=== PATIENT | male | born 1985 | race Caucasian/White ===

== ENCOUNTER 2025-05-28 11:01 | Outpatient (AMB) | payer OTHER, SELFPAY ==
--- NOTE | 2025-05-28 10:54 | MHC.PC.OV ---
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 Accompanied by: Self / Same As Patient Allergies No Known Allergies Allergy (Verified 05/28/25 10:56) Medication List - Last Reconciled 05/28/25 by Robin Trevino MD No Known Home Meds Tobacco use date assessed: 05/28/25 Dental Screening Dental Screen Date: 05/28/25 Did you have a dental visit in the last 12 months?: Yes Did you have a dental problem in the last 6 months where you did not have access to dental care?: No Was dental information given to patient?: No HPI HPI Comments History of Present Illness Details History of Present Illness The patient is a 40-year-old male presenting to [facility] primary care and for evaluation of new-onset headaches. Headache: The patient reports new-onset headaches over the last three months, which primarily occur upon waking in the morning. The headaches are described as being located on the right frontal side, with a sensation of wrapping around the front of his head. He rates the typical pain as a 5-6 out of 10, but recalls one severe episode that felt like a hot drill in his head, which he would rate a 10/10, causing him to fall. Associated symptoms include severe brain fog; he denies nausea, vomiting, dizziness, or double vision. The patient notes that the headaches consistently resolve after the first mile of his morning run. The onset of these headaches was approximately around the same time he was hit in the head with a tree branch at work, though he did not lose consciousness or have immediate pain. He has a history of migraines but states these headaches feel different. He also reports an odd cramping in a tendon in his arm, between the biceps, which has now started in a tendon in the back of his leg. For this issue, he has been evaluated at an urgent care, an orthopedic urgent care, and two different ERs ([place] and [place]). A CT scan and X-rays were performed within the last three months, which he was told were normal. Attempts by an orthopedic doctor and his chiropractor to get an MRI have been denied by his insurance. He has also seen a urologist to check his hormones and has been seeing a chiropractor who suspects an issue with his C5 vertebrae and noted absent reflexes. 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 His last outbreak was about four weeks ago. He typically receives Valtrex from an urgent care for episodic treatment when he feels an outbreak starting. He inquired about daily suppressive therapy but expressed concern about potential side effects, specifically kidney damage, as his father has kidney disease. Gastroenteritis and colitis: The patient recently recovered from food poisoning after mart E. coli and C. diff, which caused diarrhea for two weeks that progressed to bloody stools, leading to an ER visit. He has completed a 10-day course of antibiotics and reports his stomach is now fine. Surgical History: No prior surgical history was discussed. Medications: - Muscle relaxer: Took one dose previously, but discontinued due to side effects. - Valtrex: Takes for HSV-2 outbreaks. 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 - Physical Activity: Reports being a very physical person, runs 5-7 miles, and goes to the gym. - Diet: Reports he eats healthy. - Tobacco Use: Smoked from age 13 to 23, quit approximately 17 years ago. - Alcohol Use: Drinks socially. - Sleep: Reports decent sleep and occasional snoring. Denies waking up gasping for air or feeling tired during the day. - Living Situation: Lives alone and has his children on a week on, week off basis. Family History: - Father has kidney disease. Diagnostic Results: - CT Scan of the head: Performed at [facility] within the last three months, reported as normal by his chiropractor who reviewed the scan. - X-ray: Performed at [facility] within the last three months, results reported as good. - Blood work: Performed at an urgent care and [place] ER with unspecified results. - Hormones: Checked by urologist with unspecified results. Past Medical History - Migraines: History of migraines which he feels he has outgrown. - Head Trauma: Hit in the head with a branch approximately 3 months ago without loss of consciousness. - Infectious Disease: Recent E. coli and C. diff infection, resolved with antibiotics. - Herpes Simplex Virus 2 Infection: Diagnosed with HSV-2, with recent increase in outbreak frequency. Health Maintenance - Patient is establishing care with a primary care physician for the first time in years. - Baseline labs including hemoglobin A1c, lipids, thyroid function, B12, vitamin D, HIV, hepatitis B, and hepatitis C are being ordered. [facility] Medical History (Updated 05/28/25 @ 11:12 by Rboin Trevino MD) Snoring Morning headache Severe headache Family History (Updated 05/28/25 @ 10:59 by Yayo Carmona MA) Father Kidney disease Mother No problems noted. Social History Housing: House Patient Tobacco Use Status: Never used Tobacco service: No Current occupational status: employed Cognitive needs: No Hearing needs: No Vision needs: No Review of Systems Narrative Review of Systems - Neurological: Reports morning headaches for the past 3 months, locating to the right frontal area. Reports one episode of severe, drilling head pain (05/11). Reports associated brain fog and an odd cramping sensation in his arm and leg. History of migraines. Denies nausea, vomiting, dizziness, and double vision. - Eyes: Denies eye involvement with headaches. - Respiratory: Reports occasional snoring. Denies waking up gasping for air. Reports seasonal allergies in the springtime. Denies nasal congestion. - Gastrointestinal: Reports recent history of E. coli and C. diff infection with bloody diarrhea, now resolved. Denies current stomach issues. - Constitutional: Denies feeling tired during the day. 10-point ROS reviewed and negative except as noted in HPI Physical exam (Primary Care) Vital Signs: Last Vital Signs Temp 98.1 F 05/28/25 10:55 Pulse 69 05/28/25 10:55 Resp 16 05/28/25 10:55 BP 131/73 05/28/25 10:55 Pulse Ox 97 05/28/25 10:55 Oxygen Delivery Method Room Air 05/28/25 10:55 BMI result Body Mass Index 28.3 Tobacco/Smoking Status: Tobacco use Status Tobacco use date assessed 05/28/25 05/28/25 10:59 Patient Tobacco Use Status Never used Tobacco 05/28/25 10:59 Narrative Physical Exam General: Well-appearing, in no acute distress. Vital signs: Within normal limits. HEENT: Normocephalic, atraumatic. PERRLA, EOMI. Conjunctiva clear, sclera anicteric. Oropharynx clear, mucous membranes moist. TMs intact bilaterally. Frontal right-sided headache, wrapping around the front of the head. No nasal congestion noted. Neck: Supple, no lymphadenopathy, no thyromegaly, no JVD or carotid bruits. Patient reports a cramping sensation in the neck and arm. Cardiovascular: RRR, normal S1/S2, no murmurs, rubs, or gallops. Peripheral pulses 2+ and symmetric. No edema. Respiratory: Lungs clear to auscultation bilaterally, no wheezes, rales, or rhonchi. Normal effort. Abdomen: Soft, non-tender, non-distended. Normoactive bowel sounds. No hepatosplenomegaly, no masses. MSK: Full range of motion, no joint swelling or deformity. Normal gait. Reports cramping sensation in the arm and leg. Skin: Warm, dry, intact. No rashes, lesions, or pallor. Neuro: Alert and oriented x3. Cranial nerves II-XII intact. Strength 5/5 throughout. Sensation intact. Reflexes 2+ symmetric. Normal coordination and gait. Reports severe headaches, described as a hot drill sensation, with a history of migraines. Psych: Appropriate mood and affect. Normal judgment and insight. Reports stress headaches and a history of migraines. No current stress noted. Coding Level of Care Code New Pt Level 4 (12624) Diagnoses Severe headache R51.9 Morning headache R51.9 Snoring R06.83 History of migraine Z86.69 Herpes B00.9 Assessment & Plan Assessment & Plan (1) Severe headache: Code(s): R51.9 - Headache, unspecified Category: Medical (2) Morning headache: Code(s): R51.9 - Headache, unspecified Category: Medical (3) Snoring: Code(s): R06.83 - Snoring Category: Medical (4) History of migraine: Code(s): Z86.69 - Personal history of other diseases of the nervous system and sense organs (5) Herpes: Code(s): B00.9 - Herpesviral infection, unspecified Plan Consent Patient was informed and verbally consented to the use of an ambient scribe for clinic note documentation during this visit. Plan 1. Headache - Will place a referral to Neurology for further evaluation. - A referral will be placed for a home sleep study to investigate for sleep apnea as a potential cause of morning headaches. - A prescription for Ibuprofen 800 mg will be sent for as-needed use for severe headaches. - Will order baseline bloodwork including HbA1c, lipid panel, thyroid studies, vitamin B12, vitamin D, HIV, and hepatitis panel. - Will request medical records from prior evaluations at the ERs, explosive ordnance specialist, chiropractor, and urologist. - Follow up in 2 weeks to review results. 2. Herpes Simplex Virus 2 Infection - Discussed daily suppressive antiviral therapy (Acyclovir 400 mg twice daily), which can reduce outbreak frequency by 70-80%. - Patient declined suppressive therapy at this time due to concern for potential side effects, including headache. - Will send a prescription for Valtrex (Valacyclovir) 500 mg for the patient to have on hand for episodic treatment at the onset of symptoms. - Advised that suppressive therapy can be reconsidered after the etiology of his headaches is determined and treated. Discussion Notes I have discussed with the patient the plan to investigate his new-onset headaches. I explained that we will be placing a referral to neurology and for a home sleep study, as the morning nature of the headaches could be related to a sleep disorder like sleep apnea. I informed him that we will be obtaining baseline lab work and requesting records from his previous evaluations. We discussed his HSV-2 outbreaks and reviewed the options for treatment, including daily suppressive therapy with acyclovir versus episodic treatment with Valtrex. I noted the potential risks of long-term antiviral use, such as kidney damage, and the potential side effects of suppressive therapy, including headache and nausea. The patient has opted to continue with episodic treatment for now, and I will be providing him with a prescription for Valtrex. I also prescribed Ibuprofen 800 mg for severe headaches and counseled him on using it sparingly to avoid kidney and stomach issues. The patient will follow up in two weeks to review results. Patient Instructions - Go to the lab to have blood drawn for the tests ordered today. - You will be contacted to schedule an appointment with a neurologist and to set up a home sleep study. - Sign the consent form at the [facility] so we can request your medical records from other doctors and hospitals. - For severe headaches, you may take one Ibuprofen 800 mg tablet. If the pain continues, you can take another one in 6 to 8 hours. Do not take this medication too often as it can cause kidney and stomach problems. - A prescription for Valtrex will be sent to your pharmacy. Take this medication as directed when you feel a herpes outbreak starting. - Schedule a follow-up appointment in two weeks to go over your test results. Medical Decision Making The patient is a 40-year-old male establishing care, presenting with a three-month history of new-onset daily morning headaches. The differential diagnosis for his headaches is broad, but concerning features include the new onset in middle age, a possible post-traumatic etiology, and the severity of his initial headache episode. While CT and X-rays have reportedly been negative, these do not fully rule out significant pathology. The patient's report of morning headaches that resolve with physical activity, in conjunction with occasional snoring, raises suspicion for sleep apnea, making a home sleep study a necessary and low-risk diagnostic step. Given the atypical nature of the headaches, the associated neurological symptom of limb cramping, and the chiropractor's finding of absent reflexes, a full neurological evaluation is warranted to rule out a primary neurological or cervical spine disorder; therefore, a referral to neurology is crucial. A specialist referral may also aid in getting a previously denied MRI approved. Regarding his HSV-2, the patient has an increased frequency of outbreaks. While daily suppressive therapy is a valid option, his concern about headache as a potential side effect is reasonable given his chief complaint. Therefore, providing a prescription for episodic treatment with Valtrex is the most appropriate management strategy at this time, with a plan to revisit suppressive therapy once his headaches are better understood and managed. Baseline labs are indicated for health maintenance in a new patient. Total time spent caring for the patient today was 30 minutes. This includes time spent before the visit reviewing the chart, time spent documenting, and time spent reviewing laboratory results, diagnostic imaging, medications, performing a medically necessary evaluation, counseling on diagnoses, care coordinatio Orders: Orders Hemoglobin A1c Today Z13.9 - Encounter for screening, unspecified HIV Ab/Ag Today Z13.9 - Encounter for screening, unspecified TSH reflex Free T4 Today Z13.9 - Encounter for screening, unspecified Chlamydia Species Ab Panel Today Z13.9 - Encounter for screening, unspecified RT home sleep study Today R06.83 - Snoring, R51.9 - Headache, unspecified, Z13.9 - Encounter for screening, unspecified Complete Blood Count Auto Diff Today Z13.9 - Encounter for screening, unspecified Comprehensive Met. Panel Today Z13.9 - Encounter for screening, unspecified Hepatitis B Surface Antibody Today Z13.9 - Encounter for screening, unspecified Hepatitis B Surface Antigen Today Z13.9 - Encounter for screening, unspecified Hepatitis C Antibody Today Z13.9 - Encounter for screening, unspecified Lipid Panel Today Z13.9 - Encounter for screening, unspecified Magnesium Today Z13.9 - Encounter for screening, unspecified UA CC w/rflx Micro + Cult Today Z13.9 - Encounter for screening, unspecified Vitamin B12 and Folate Today Z13.9 - Encounter for screening, unspecified Vitamin D 1,25 dihydroxy Today Z13.9 - Encounter for screening, unspecified CT NG by PCR Urine Today Z13.9 - Encounter for screening, unspecified Syphilis Screen Today Z13.9 - Encounter for screening, unspecified Referrals Neurology Referral R51.9 - Headache, unspecified, Z13.9 - Encounter for screening, unspecified Medications: New ibuprofen 800 mg PO Q8H 30 tabs 0RF valacyclovir 500 mg PO DAILY 30 tabs 0RF
[2025-05-28 10:55] VITALS: BP 131/73; PULSE 69; RESP 16; TEMP 36.7; O2SAT 97; BMI 28.3
== END 2025-05-28 11:32 | disposition home or self-care (01) ==
PROVIDERS: PCP Student in an Organized Health Care Education/Training Program; Visit Provider Student in an Organized Health Care Education/Training Program
DX: R51.9 Headache, unspecified (principal); R06.83 Snoring; Z86.69 Personal history of other diseases of the nervous system and sense organs; B00.9 Herpesviral infection, unspecified

== ENCOUNTER 2025-05-28 11:01 | Outpatient (REF) | payer OTHER, SELFPAY ==
[2025-05-28 17:57] LABS: MANUAL DIFF FLAG NO
[2025-05-28 18:10] LABS: Hematocrit 46.6 % (42.0-52.0); Hemoglobin 15.6 g/dl (14.0-18.0); Imm Gran Abs Auto 0.04 X10*3/uL (0.00-0.03); Imm Gran Pct Auto 0.7 % (0.0-0.4); Lymphocytes Absolute Auto 1.9 X10*3/uL (1.2-4.9); Mean Corpuscular HGB Conc 33.5 g/dl (31.0-36.0); Mean Corpuscular Hemoglobin 30.5 pg (27.0-33.0); Mean Corpuscular Volume 91.0 fL (80.0-98.0); NRBC Abs Auto 0.000 X10*3/uL (0.0-0.012); NRBC Pct Auto 0.0 /100WBC (0.0-0.2); Platelet Count 250 X10*3/uL (160-400); Red Blood Count 5.12 X10*6/uL (4.60-5.80); White Blood Count 5.9 X10*3/uL (4.8-10.8)
[2025-05-28 18:32] LABS: Alanine Aminotransferase 62 U/L (0-40); Albumin Level 4.8 g/dL (3.5-5.0); Alkaline Phosphatase 62 U/L (39-117); Anion Gap 12 (12-20); Aspartate Amino Transferase 49 U/L (5-37); Blood Urea Nitrogen 15 mg/dL (9-16); Calcium 9.5 mg/dL (8.4-10.2); Carbon Dioxide 28 mmol/L (22-29); Chloride 103 mmol/L (96-108); Cholesterol 159 mg/dL (<200); Estimated Glomerular Filt Rate > 60; HDL Cholesterol 41 mg/dL (>40); Magnesium 2.2 mg/dL (1.6-2.6); Potassium 4.4 mmol/L (3.3-5.1); Sodium 139 mmol/L (135-145); Total Protein 7.3 g/dL (6.5-8.0); Triglycerides 98 mg/dL (<150)
[2025-05-28 18:56] LABS: Folate 11.2 ng/mL (> or = 4.0); Vitamin B12 422 pg/mL (200-900)
[2025-05-29 03:32] LABS: Syphilis Screen Nonreactive (Nonreactive)
[2025-05-29 03:52] LABS: HBS Num1 339.78 mIU/mL (0-7.99); HBsAGNum1 0.51 S/CO (0.00-0.99); HIV Num 1 0.07 S/CO (0.00-0.99); Hepatitis B Surface Antigen Negative (Negative); ~HepC Num1 0.12 S/CO (0.00-0.79); ~Hepatitis B Surface Antibody REACTIVE (Nonreactive); ~Hepatitis C Antibody Nonreactive (Nonreactive)
[2025-05-29 05:23] LABS: Hemoglobin A1C 132.4743 umol/L
[2025-05-31 21:18] LABS: Chlamydia Trachomatis IgA <1:16 titer (<1:16)
[2025-06-01 22:53] LABS: VITAMIN D (1,25 OH) D3 41 pg/mL; Vit D (1,25-Dihydroxy) Total 41 pg/mL (18-72); Vitamin D (1,25 OH) D2 <8 pg/mL
== END 2025-05-28 11:02 | disposition home or self-care (01) ==
LOC: HO.HKASLDS 11:01
PROVIDERS: PCP Student in an Organized Health Care Education/Training Program; Visit Provider Student in an Organized Health Care Education/Training Program
DX: Z13.9 Encounter for screening, unspecified (principal); R51.9 Headache, unspecified; R06.83 Snoring; B00.9 Herpesviral infection, unspecified; Z86.69 Personal history of other diseases of the nervous system and sense organs
CPT/HCPCS: 36415; 80053; 80061; 82607; 82652; 82746; 83036; 83735; 84443; 85025; 86631; 86632; 86706; 86780; 86803; 87340; 87389; 99202

== ENCOUNTER 2025-06-13 13:04 | Outpatient (REF) | payer OTHER, SELFPAY | END 2025-06-13 13:05 | disposition home or self-care (01) | LOC: HO.HKASLDS 13:04 | PROVIDERS: PCP Student in an Organized Health Care Education/Training Program; Visit Provider Student in an Organized Health Care Education/Training Program | DX: R74.8 Abnormal levels of other serum enzymes (principal); M54.2 Cervicalgia; R19.7 Diarrhea, unspecified; R51.9 Headache, unspecified; Z79.899 Other long term (current) drug therapy | CPT/HCPCS: 99212 ==

== ENCOUNTER 2025-06-13 13:04 | Outpatient (AMB) | payer OTHER, SELFPAY ==
--- NOTE | 2025-06-13 13:13 | A.OFFPC_ITS ---
Vital Signs 06/13/25 13:14 Height 6 ft 1.23 in Weight 215 lb BMI 28.2 BP 148/68 H Blood Pressure Location Lt brachial Position Sitting Pulse 70 Pulse Source Pulse Oximeter Temp 98.2 F Temp Source Oral Pulse Oximetry (%) 98 Oxygen Delivery Method Room Air Intake Visit Reasons: Ep - E/D Follow Up Sheet Turner Required: No Accompanied by: Self / Same As Patient Allergies No Known Allergies Allergy (Verified 06/13/25 13:17) Medication List - Last Reconciled 06/13/25 by Robin Trevino MD ibuprofen 800 mg PO Q8H valacyclovir 500 mg PO DAILY Tobacco use date assessed: 06/13/25 Dental Screening Dental Screen Date: 06/13/25 Did you have a dental visit in the last 12 months?: Yes Did you have a dental problem in the last 6 months where you did not have access to dental care?: No Was dental information given to patient?: No HPI HPI Comments History of Present Illness Details History of Present Illness The patient is a 40-year-old male presenting for follow-up on headaches and lab results, and with new complaints of recurrent diarrhea and stomach pain with suspicion for a C. difficile infection. 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 diff symptoms, which he believes is back. He was initially diagnosed at an emergency room with both C. diff and E. coli after he developed symptoms following a course of antibiotics for a suspected sinus infection and attending a food truck festival. His initial symptoms included severe bloody and black, mucoid/tarry stools for two weeks. He completed a 10-day course of an antibiotic, and the diarrhea subsided about two days into the treatment. However, the diarrhea returned one to two days after finishing the antibiotic course and has been getting worse, accompanied by stomach pains that started last Wednesday. He describes the diarrhea as constant, occurring every 20 minutes if he is eating, which has led him to only eat dinner. Headache and Cervicalgia: The patient reports that his headaches are letting up, though he had one today. He previously had a CT scan of his head at an ER, which his chiropractor reviewed and stated was normal. He also experiences nerve pain, which his chiropractor believes is related to his cervical spine, specifically at the C5 level. An MRI of his neck has been ordered four times by his orthopedic doctor and chiropractor but has been denied by his insurance. His orthopedist also performed an x-ray. Elevated liver enzymes: Recent lab results showed mildly elevated liver enzymes, with one value at 49 (cutoff 37) and another at 62 (cutoff 40). All other blood work, including CBC, metabolic panel, lipids, HbA1c, vitamin levels, thyroid function, and an infectious panel for hepatitis B, hepatitis C, and HIV, was normal. The patient reports taking pre-workout supplements and protein powders. He has a remote history of steroid use during a divorce but has not used them recently. Surgical History: - No prior surgical history was discusse d. Medications: - Unknown antibiotic for a suspected sin us infection, course completed. - Unknown antibiotic (possibly starting with 'M') for 10 days for C. diff infection, course completed. Social History: - Substance Use: Reports a past history of steroid use, but not recently. - Nutrition/Supplements: Takes pre-worko ut supplements and protein powders. - Due to frequent diarrhea after eating, he restricts his intake to only dinner. Family History: - No family history was discussed. Diagnostic Results: - Labs (current): - White blood cell count, red blood cell count, hemoglobin, and hematocrit are normal. - Platelets, sodium, and potassium are n ormal. - Kidney function is normal. - Hemoglobin A1c and random glucose are normal. - Liver enzymes were mildly elevated: on e at 49 (cutoff 37) and another at 62 (cutoff 40). - Cholesterol, vitamin D, vitamin B12, f olate, and thyroid levels are normal. - Hepatitis B, hepatitis C, HIV, chlamyd ia, and syphilis are negative. - Prior Imaging/Tests: - Stool sample tested at the ER was posi tive for C. diff and E. coli. - CT scan of the head was performed at a ER and was reportedly normal. - An x-ray was performed by his orthoped ic doctor. Past Medical History - Clostridioides difficile infection, re cently treated. - Escherichia coli infection, foodborne. - Hemorrhoids. - History of steroid use (remote). Health Maintenance - Recent comprehensive lab testing perfo rmed and reviewed, including CBC, CMP, HbA1c, lipids, and infectious disease screening (hepatitis B/C, HIV, syphilis). - Discussion about avoiding unnecessary antibiotic use. [facility] Medical History (Updated 06/13/25 @ 20:50 by Robin Trevino MD) Elevated liver enzymes Cervicalgia Acute diarrhea Snoring Morning headache Severe headache Family History Father Kidney disease Mother No problems noted. Social History Housing: House Patient Tobacco Use Status: Never used Tobacco service: No Current occupational status: employed Cognitive needs: No Hearing needs: No Vision needs: No Questionnaire PHQ-9 Over the last 2 weeks, how often have you been bothered by any of the following problems? 1. Little interest or pleasure in doing things: not at all 2. Feeling down, depressed, or hopeless: not at all 3. Trouble falling or staying asleep, or sleeping too much: not at all 4. Feeling tired or having little energy: not at all 5. Poor appetite or overeating: not at all 6. Feeling bad about yourself - or that you are a failure or have let yourself or your family down: not at all 7. Trouble concentrating on things, such as reading the newspaper or watching television: not at all 8. Moving or speaking so slowly that other people could have noticed. Or the opposite - being so fidgety or restless that you have been moving around a lot more than usual: not at all 9. Thoughts that you would be better off or of hurting yourself in some way: not at all Total score: 0 Depression Screening Interpretation: Negative Depression Screening Done: Yes Source: Developed by Drs. Bernard Manning, Mini Andino, Samir Moreland and colleagues, with an educational maxx from [employer]. Thrive Questionnaire Date Thrive assessed: 06/13/25 I am a: Patient What is your living situation today?: I have a steady place to live Within the past 12 months, did the food you bought not last and you didn't have the money to get more?: I choose not to answer this question Within the past 12 months, did you worry whether your food would run out before you got money to buy more?: I choose not to answer this question Do you have trouble paying for medicines?: I choose not to answer this question Do you have trouble getting transportation to medical appointments?: I choose not to answer this question Do you have trouble paying your heating and electricity bill?: I choose not to answer this question Do you have trouble taking care of your child, family member or friend?: I choose not to answer this question Are you currently unemployed and looking for a job?: I choose not to answer this question Are you interested in more education?: I choose not to answer this question Please select the resources that you would like help with: None Currently or been in a relationship where the following occur: I choose not to answer THRIVE Score: 0 AUDIT C Alcohol Use Questionnaire (AUDIT-C) 1. How often do you have a drink containing alcohol?: 2-4 times a month 2. How many drinks containing alcohol do you have on a typical day when you are drinking?: 1 or 2 3. How often do you have six or more drinks on one occasion?: Never Total Score: 2 JOELLE-7 AMB Questionnaire JOELLE-7 Date JOELLE - 7 assessed: 06/13/25 Feeling nervous, anxious, or on edge: 0 = Not at all Not being able to stop or control worryin = Not at all Worrying too much about different things: 0 = Not at all Trouble relaxin = Not at all Being so restless that it is hard to sit still: 0 = Not at all Becoming easily annoyed or irritable: 0 = Not at all Feeling afraid as if something awful might happen: 0 = Not at all Total JOELLE-7 score (0-4 normal; 5-9 mild; 10-14 moderate; 15-21 severe): 0 Source: Developed by Drs. Bernard Manning, Mini Andino, Samir Moreland and colleagues, with an educational maxx from [employer]. Review of Systems Narrative Review of Systems - Neurological: Reports headaches that are improving but still present. - Reports nerve pain. - Gastrointestinal: Reports constant diarrhea which has recurred after stopping antibiotics. - Reports stomach pains that began last Wednesday. - Reports a history of severely bloody and black, tarry/mucus-like stools. 10-point ROS reviewed and negative except as noted in HPI Physical exam (Primary Care) Vital Signs: Last Vital Signs Temp 98.2 F 06/13/25 13:14 Pulse 70 06/13/25 13:14 BP 148/68 H 06/13/25 13:14 Pulse Ox 98 06/13/25 13:14 Oxygen Delivery Method Room Air 06/13/25 13:14 BMI result Body Mass Index 28.2 Tobacco/Smoking Status: Tobacco use Status Tobacco use date assessed 06/13/25 06/13/25 13:19 Patient Tobacco Use Status Never used Tobacco 06/13/25 13:16 PHQ-9: PHQ-9 Score PHQ-9: Total score 0 06/13/25 13:19 Depression Screening Interpretation: Negative Thrive Assessment: Date of Thrive Assessment Date Thrive assessed 06/13/25 06/13/25 13:19 Currently or been in a relationship where the following occur: I choose not to answer Narrative Physical Exam General: Well-appearing, in no acute distress. Vital signs: Within normal limits. HEENT: Normocephalic, atraumatic. PERRLA, EOMI. Conjunctiva clear, sclera anicteric. Oropharynx clear, mucous membranes moist. TMs intact bilaterally. Neck: Supple, no lymphadenopathy, no thyromegaly, no JVD or carotid bruits. Cardiovascular: RRR, normal S1/S2, no murmurs, rubs, or gallops. Peripheral pulses 2+ and symmetric. No edema. Respiratory: Lungs clear to auscultation bilaterally, no wheezes, rales, or rhonchi. Normal effort. Abdomen: Soft, non-tender, non-distended. Normoactive bowel sounds. No hepatosplenomegaly, no masses. MSK: Full range of motion, no joint swelling or deformity. Normal gait. Skin: Warm, dry, intact. No rashes, lesions, or pallor. Neuro: Alert and oriented x3. Cranial nerves II-XII intact. Strength 5/5 throughout. Sensation intact. Reflexes 2+ symmetric. Normal coordination and gait. Psych: Appropriate mood and affect. Normal judgment and insight. Coding Level of Care Code Est Pt Level 3 (76297) Diagnoses Acute diarrhea R19.7 Morning headache R51.9 Cervicalgia M54.2 Elevated liver enzymes R74.8 Assessment & Plan Assessment & Plan (1) Acute diarrhea: Code(s): R19.7 - Diarrhea, unspecified Category: Medical (2) Morning headache: Code(s): R51.9 - Headache, unspecified Category: Medical (3) Cervicalgia: Code(s): M54.2 - Cervicalgia Category: Medical (4) Elevated liver enzymes: Code(s): R74.8 - Abnormal levels of other serum enzymes Category: Medical Plan Consent No procedures requiring specific consent were discussed during the visit. Patient was informed and verbally consented to the use of an ambient scribe for clinic note documentation during this visit. Plan 1. Recurrent Clostridioides Difficile Infection - A stool study will be ordered to test for C. diff. - If the stool study is positive, appropriate treatment will be initiated. - The patient was instructed on where to bring the stool sample. 2. Headache And Cervicalgia - The patient is advised to wait for the upcoming neurology follow-up. - The patient will provide the office with information to request prior imaging, including a CT of the head from the ER and neck x-rays from his orthopedist. - Will consider ordering a neck MRI after reviewing prior studies and the neurologist's assessment. 3. Elevated Liver Transaminases - Given the mild elevation and otherwise normal workup, the plan is to monitor the liver enzymes. - Repeat labs will be ordered in three months to re-check liver function. - If the enzymes remain elevated on repeat testing, an ultrasound and further labs will be considered. - A follow-up visit is scheduled for three months. Discussion Notes I reviewed the recent lab results with the patient and noted that while most results were excellent, there was a mild elevation in his liver enzymes. I explained that we would monitor this by repeating the labs in three months, and if they remained high, we would consider an ultrasound. We discussed his recurrent diarrhea and stomach pain, and my clinical suspicion for recurrent C. difficile infection. I have ordered a stool study to confirm the diagnosis, with a plan to initiate appropriate treatment if it returns positive. Regarding his headaches and nerve pain, I recommended we obtain his prior imaging records from the ER and his orthopedist to have a complete picture before considering further steps like another MRI request. I emphasized the importance of his upcoming neurology appointment. Patient Instructions - Please provide a stool sample for testing. - You can bring the sample to the lab where you had your blood drawn. - Please give our staff (Iris) the information for the location where you had your head CT scan and neck x-rays done so we can request the reports. - We will have you repeat your blood work in three months to recheck your liver function. - Please schedule a follow-up appointment in about three months, but you can come in sooner if you need to. Medical Decision Making The patient is a 40-year-old male with a chief complaint of recurrent diarrhea and abdominal pain, raising high suspicion for recurrent C. difficile infection. His history is significant for a recent antibiotic course for suspected sinusitis, followed by confirmed E. coli and C. diff infections diagnosed in the ER. The temporal association of symptom recurrence shortly after completing a 10-day antibiotic course for C. diff strongly supports this differential. Therefore, a stool study for C. diff toxin is the next appropriate diagnostic step before committing to further antibiotic treatment. The patient's secondary complaints include improving headaches and persistent nerve pain, which his chiropractor attributes to a C5 issue. Multiple attempts to obtain a cervical MRI by other providers have been denied. My plan is to consolidate care by first reviewing all prior imaging (head CT, neck X-ray) and awaiting his neurology consult before considering a new MRI order, which may improve the chances of approval. Review of recent labs revealed mild transaminitis in the setting of otherwise normal comprehensive metabolic, lipid, and infectious panels. Given his use of workout supplements and lack of other risk factors, the current approach is conservative monitoring with repeat liver function tests in three months. If elevations persist, a liver ultrasound will be the next step to investigate for underlying pathology. Total time spent caring for the patient today was 20 minutes. This includes time spent before the visit reviewing the chart, time spent documenting, and time spent reviewing laboratory results, diagnostic imaging, medications, performing a medically necessary evaluation, counseling on diagnoses, care coordination. Orders: Orders CDiff Gene PCR Today R19.7 - Diarrhea, unspecified Calprotectin, Fecal Today R19.7 - Diarrhea, unspecified Leukocytes Stool Qualitative Today R19.7 - Diarrhea, unspecified
[2025-06-13 13:14] VITALS: BP 148/68; PULSE 70; TEMP 36.8; O2SAT 98; BMI 28.2
== END 2025-06-13 13:48 | disposition home or self-care (01) ==
LOC: HO.HMCFMS 13:05
PROVIDERS: PCP Student in an Organized Health Care Education/Training Program; Visit Provider Student in an Organized Health Care Education/Training Program
DX: R19.7 Diarrhea, unspecified (principal); R51.9 Headache, unspecified; M54.2 Cervicalgia; R74.8 Abnormal levels of other serum enzymes

== ENCOUNTER 2025-06-14 09:33 | Outpatient (REF) | payer OTHER, SELFPAY ==
[2025-06-14 14:54] LABS: Leukocytes Stool Qualitative NEGATIVE (NEGATIVE)
[2025-06-14 16:22] LABS: CDiff Gene PCR POSITIVE (Negative)
[2025-06-14 16:23] LABS: CDiff Toxin Positive (Negative)
[2025-06-14 16:24] LABS: CDIFF Internal ctrl Dots and bkg OK (V)
[2025-06-21 20:23] LABS: Calprotectin, Fecal 32 mcg/g
== END 2025-06-14 09:34 | disposition home or self-care (01) ==
LOC: HO.HKASLDS 09:33
PROVIDERS: PCP Student in an Organized Health Care Education/Training Program; Visit Provider Student in an Organized Health Care Education/Training Program
DX: R19.7 Diarrhea, unspecified (principal)
CPT/HCPCS: 83993; 87324; 87493; 89055

== ENCOUNTER 2025-07-18 14:23 | Outpatient (AMB) | payer OTHER, SELFPAY ==
--- NOTE | 2025-07-18 13:31 | A.OFFPC_ITS ---
Intake Visit Reasons: Follow up Allergies No Known Allergies Allergy (Verified 06/13/25 13:17) Tobacco use date assessed: 06/13/25 Dental Screening Dental Screen Date: 06/13/25 COUNTS INCLUDE 234 BEDS AT THE [facility] Medical History (Updated 06/15/25 @ 15:07 by Robin Trevino MD) C. difficile diarrhea Elevated liver enzymes Cervicalgia Acute diarrhea Snoring Morning headache Severe headache Family History Father Kidney disease Mother No problems noted. Social History Housing: House Patient Tobacco Use Status: Never used Tobacco service: No Current occupational status: employed Cognitive needs: No Hearing needs: No Vision needs: No Questionnaire Thrive Questionnaire Date Thrive assessed: 06/13/25 JOELLE-7 AMB Questionnaire JOELLE-7 Date JOELLE - 7 assessed: 06/13/25 Source: Developed by Drs. Bernard Manning, Mini Andino, Samir Moreland and colleagues, with an educational maxx from [employer]. Physical exam (Primary Care) Tobacco/Smoking Status: Tobacco use Status Tobacco use date assessed 06/13/25 06/13/25 13:19 Patient Tobacco Use Status Never used Tobacco 06/13/25 13:16 Thrive Assessment: Date of Thrive Assessment Date Thrive assessed 06/13/25 06/13/25 13:19 Coding
--- NOTE | 2025-07-18 14:24 | A.OFFPC_ITS ---
Vital Signs 07/18/25 14:30 Height 6 ft 1.23 in BP 120/58 L Blood Pressure Location Lt brachial Position Sitting Pulse 90 Pulse Source Pulse Oximeter Temp 98.0 F Temp Source Oral Pulse Oximetry (%) 97 Oxygen Delivery Method Room Air Intake Visit Reasons: Follow up Intake Note: f/u C Dif. Completed vancomycin and is still having sx Accompanied by: Self / Same As Patient Allergies No Known Allergies Allergy (Verified 07/18/25 14:24) Medication List - Last Reconciled 07/19/25 by Robin Trevino MD ibuprofen 800 mg PO Q8H valacyclovir 500 mg PO DAILY Tobacco use date assessed: 07/18/25 Dental Screening Dental Screen Date: 07/18/25 Did you have a dental visit in the last 12 months?: Yes HPI HPI Comments History of Present Illness Details History of Present Illness The patient is a 40 year old male presenting for follow-up of a Clostridioides difficile infection and evaluation of persistent brain fog. 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 He was seen in the emergency department on May 14, 2025, for diarrhea and colitis, with a positive C. diff result from April and recent antibiotic use making infectious colitis highly probable. He was previously treated with Vancomycin. A recent prescription for fidaxomicin was denied by his insurance due to cost. He describes his stool as mucousy and tarry, but denies any blood. His history also includes a prior E. coli infection. Brain Fog: The patient has been experiencing brain fog and memory problems for several months. He attributes this to significant life stressors over the past five years, including a divorce and custody cortes. Due to his work in [employer], he was tested for tick-borne diseases, but the full tick panel was negative. He also had daily headaches for four months, which have since subsided to approximately once every three weeks. Recent lab work, including B12, thyroid, and metabolic panels, were all normal. He has a neurology appointment scheduled for the end of September. History of Attention-Deficit/Hyperactivity Disorder (ADHD): The patient has a history of ADHD, dyslexia, and anxiety since childhood. He describes being treated with a multitude of medications as a child, which he felt was like being a guinea pig, leading to significant side effects including weight gain to 250 pounds and sexual dysfunction. Due to this negative experience, he is hesitant to take psychiatric medications. He previously self- medicated with Adderall to maintain focus during his custody cortes but disliked the side effects, such as anorexia and insomnia. He currently attends therapy every other week. 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 - Family Status: The patient is and has a daughter. - Education: He did not complete high [employer] past the 10th grade. - Substance Use: He reports past, non-pr escribed use of Adderall. - Functional Status: He attends therapy every other week. Family History: - The patient's daughter has ADHD. Diagnostic Results: - Labs: - C. diff test: Positive. - Full tick panel: Negative. - B12 level: Good. - Thyroid function: Good. - Hemoglobin and hematocrit: Normal. - Electrolytes, minerals, and vitamins: No deficiencies noted. Past Medical History - Clostridioides difficile infection: Pr eviously treated with Vancomycin. - E. coli infection - Attention-Deficit/Hyperactivity Disord er (ADHD): Diagnosed in childhood. - Dyslexia: Diagnosed in childhood. - Anxiety: Diagnosed in childhood. - Seasonal allergies Health Maintenance - The patient sees a therapist every oth er week. - He is attending [facility]ropract[facility] twice a week for six weeks for an unspecified condition. [facility] Medical History (Updated 07/19/25 @ 06:54 by Robin Trevino MD) ADHD Brain fog C. difficile diarrhea Elevated liver enzymes Cervicalgia Acute diarrhea Snoring Morning headache Severe headache Family History Father Kidney disease Mother No problems noted. Social History Housing: House Patient Tobacco Use Status: Never used Tobacco e-Cigarette/Vaping Use: Never Used service: No Current occupational status: employed Cognitive needs: No Hearing needs: No Vision needs: No Questionnaire PHQ-9 Over the last 2 weeks, how often have you been bothered by any of the following problems? 1. Little interest or pleasure in doing things: not at all 2. Feeling down, depressed, or hopeless: not at all 3. Trouble falling or staying asleep, or sleeping too much: not at all 4. Feeling tired or having little energy: not at all 5. Poor appetite or overeating: not at all 6. Feeling bad about yourself - or that you are a failure or have let yourself or your family down: not at all 7. Trouble concentrating on things, such as reading the newspaper or watching television: not at all 8. Moving or speaking so slowly that other people could have noticed. Or the opposite - being so fidgety or restless that you have been moving around a lot more than usual: not at all 9. Thoughts that you would be better off or of hurting yourself in some way: not at all Total score: 0 Depression Screening Interpretation: Negative Depression Screening Done: Yes Source: Developed by Drs. Bernard Manning, Mini Andino, Samir Moreland and colleagues, with an educational maxx from [employer]. Thrive Questionnaire Date Thrive assessed: 07/18/25 I am a: Patient What is your living situation today?: I have a steady place to live Within the past 12 months, did the food you bought not last and you didn't have the money to get more?: I choose not to answer this question Within the past 12 months, did you worry whether your food would run out before you got money to buy more?: I choose not to answer this question Do you have trouble paying for medicines?: I choose not to answer this question Do you have trouble getting transportation to medical appointments?: I choose not to answer this question Do you have trouble paying your heating and electricity bill?: I choose not to answer this question Do you have trouble taking care of your child, family member or friend?: I choose not to answer this question Are you currently unemployed and looking for a job?: I choose not to answer this question Are you interested in more education?: I choose not to answer this question Please select the resources that you would like help with: None Currently or been in a relationship where the following occur: I choose not to answer THRIVE Score: 0 AUDIT C Alcohol Use Questionnaire (AUDIT-C) 1. How often do you have a drink containing alcohol?: 2-4 times a month 2. How many drinks containing alcohol do you have on a typical day when you are drinking?: 1 or 2 3. How often do you have six or more drinks on one occasion?: Never Total Score: 2 JOELLE-7 AMB Questionnaire JOELLE-7 Date JOELLE - 7 assessed: 07/18/25 Feeling nervous, anxious, or on edge: 0 = Not at all Not being able to stop or control worryin = Not at all Worrying too much about different things: 0 = Not at all Trouble relaxin = Not at all Being so restless that it is hard to sit still: 0 = Not at all Becoming easily annoyed or irritable: 0 = Not at all Feeling afraid as if something awful might happen: 0 = Not at all Total JOELLE-7 score (0-4 normal; 5-9 mild; 10-14 moderate; 15-21 severe): 0 Source: Developed by Drs. Bernard Manning, Mini Andino, Samir Moreland and colleagues, with an educational maxx from [employer]. Review of Systems Narrative Review of Systems - Constitutional: Denies fevers and chills. - Neurological: Reports brain fog and memory impairment. - Gastrointestinal: Reports mucousy and tarry stools. - Denies blood in diarrhea. - Allergic/Immunologic: Reports itchy eyes in the springtime, which he treats with Claritin. 10-point ROS reviewed and negative except as noted in HPI Physical exam (Primary Care) Vital Signs: Last Vital Signs Temp 98.0 F 07/18/25 14:30 Pulse 90 07/18/25 14:30 BP 120/58 L 07/18/25 14:30 Pulse Ox 97 07/18/25 14:30 Oxygen Delivery Method Room Air 07/18/25 14:30 Tobacco/Smoking Status: Tobacco use Status Tobacco use date assessed 07/18/25 07/18/25 14:25 Patient Tobacco Use Status Never used Tobacco 07/18/25 14:25 e-Cigarette/Vaping Use Never Used 07/18/25 14:25 PHQ-9: PHQ-9 Score PHQ-9: Total score 0 07/18/25 14:54 Depression Screening Interpretation: Negative Thrive Assessment: Date of Thrive Assessment Date Thrive assessed 07/18/25 07/18/25 14:25 Currently or been in a relationship where the following occur: I choose not to answer Narrative Physical Exam General: Well-appearing, in no acute distress. Vital signs: Within normal limits. HEENT: Normocephalic, atraumatic. PERRLA, EOMI. Conjunctiva clear, sclera anicteric. Oropharynx clear, mucous membranes moist. TMs intact bilaterally. Neck: Supple, no lymphadenopathy, no thyromegaly, no JVD or carotid bruits. Cardiovascular: RRR, normal S1/S2, no murmurs, rubs, or gallops. Peripheral pulses 2+ and symmetric. No edema. Respiratory: Lungs clear to auscultation bilaterally, no wheezes, rales, or rhonchi. Normal effort. Abdomen: Soft, non-tender, non-distended. Normoactive bowel sounds. No hepatosplenomegaly, no masses. MSK: Full range of motion, no joint swelling or deformity. Normal gait. Skin: Warm, dry, intact. No rashes, lesions, or pallor. Neuro: Alert and oriented x3. Cranial nerves II-XII intact. Strength 5/5 throughout. Sensation intact. Reflexes 2+ symmetric. Normal coordination and gait. Psych: Appropriate mood and affect. Normal judgment and insight. Reports brain fog for months, but labs are normal. No current psychiatric medications. Regular therapy sessions ongoing. Office Procedures Flu Questionnaire Does the patient have a severe egg allergy?: No Does the patient have severe life threatening allergies?: No Does the patient have a fever or illness today?: No Has the patient ever had Guillain-[place] Syndrome?: No Has the patient ever had any past reaction to a flu shot?: No Immunizations Fluarix [id number] (PF) 45 mcg (15 mcg x 3)/0.5 mL IM syringe Performing Provider: Robin Trevino MD Performing Location: [facility] [place] [facility] Documented (not given) by: Kiara Swain CMA on 07/18/25 14:54 Reason Not Given: Patient Refused Coding Level of Care Code Est Pt Level 3 (01447) Add On Problem Visit Only Diagnoses C. difficile diarrhea A04.72 Acute diarrhea R19.7 Brain fog R41.89 ADHD F90.9 Assessment & Plan Assessment & Plan (1) C. difficile diarrhea: Code(s): A04.72 - Enterocolitis due to Clostridium difficile, not specified as recurrent Category: Medical (2) Acute diarrhea: Code(s): R19.7 - Diarrhea, unspecified Category: Medical (3) Brain fog: Code(s): R41.89 - Other symptoms and signs involving cognitive functions and awareness Category: Medical (4) ADHD: Code(s): F90.9 - Attention-deficit hyperactivity disorder, unspecified type Category: Medical Plan Consent Patient was informed and verbally consented to the use of an ambient scribe for clinic note documentation during this visit. Plan 1. Clostridioides Difficile Infection - A referral has been placed to Gastroenterology for management, as the insurance company has denied coverage for fidaxomicin, the current standard of care. - Holding off on prescribing antibiotics at this time to avoid inducing further antibiotic-associated diarrhea and to allow the specialist to direct care. - The patient was advised that the [facility]'s gastroenterology group will call him for an appointment, and he should call them if he does not hear anything within one to two weeks. 2. Brain Fog / History Of Adhd - The patient's lab results, including B12, thyroid function, and metabolic panels, are normal. - The patient has an existing appointment with Neurology scheduled for the end of September. - Provided contact information for [email or web address], an online psychiatric service that provides ADHD testing and management. - Discussed the patient's hesitancy toward medication due to negative past experiences, encouraging him to consult with the service to see what they recommend. Discussion Notes I discussed the patient's persistent C. difficile infection. I explained that his insurance denied the recommended medication, fidaxomicin, which is the current standard of care, while the previous treatment, vancomycin, is no longer preferred. Consequently, I am referring him to a ambulatory care coordinator who can better manage the condition and navigate the insurance issues. We will not start any antibiotics at this time to avoid further complications. I also addressed his complaint of brain fog. We reviewed his normal lab results, and I acknowledged his upcoming neurology appointment. Given his significant history of ADHD and his expressed reservations about medication due to negative experiences in his youth, I provided him with information for [email or web address], a group that offers specialized virtual evaluations for ADHD. I encouraged him to explore this option at his discretion. The patient was advised to follow up as needed. Patient Instructions - A referral has been sent for you to see a specialist for your gut infection (ambulatory care coordinator). - Please do not take any new antibiotics for this until you see the specialist. - If you do not get a call for your gastroenterology appointment within 1-2 weeks, please call the hospital's scheduling department. - You were given the contact information for [facility]. - You can call them to discuss your brain fog and history of ADHD if you choose. - Keep your scheduled appointment with the neurologist at the end of September. - Please return to the clinic as needed. - Seek immediate care for any fever, chills, or blood in your stool. Medical Decision Making The patient is a 40-year-old male presenting with two main concerns: persistent Clostridioides difficile infection and chronic brain fog. Regarding the C. diff, his testing remains positive. The standard of care, fidaxomicin, was denied by his insurance, and repeating a course of vancomycin, with which he was prev iously treated, is not ideal for recurrent infection. Therefore, the most appropriate step is a referral to a ambulatory care coordinator to manage this complex case and assist with medication approval. Antibiotic therapy will be deferred pending specialist consultation. For his brain fog, the initial workup for common organic causes, including vitamin deficiencies, TSH, and anemia, is unremarkable. The differential remains broad but is heavily influenced by his significant psychosocial stressors and his history of ADHD. While a neurology follow-up is already in place, his symptoms and history warrant a dedicated neurobehavioral evaluation. I provided a resource for this, respecting his expressed hesitation regarding pharmacotherapy due to significant negative experiences as a child. Total Time Statement 20 min Total time spent caring for the patient today includes pre-visit chart review, documentation, review of laboratory and diagnostic imaging results, medication reconciliation, medically necessary evaluation, counseling on diagnoses, care coordination, ordering appropriate tests and medications, review of tests performed by other providers, reporting test results to the patient, and co mmunication with other healthcare providers. Orders: Orders Influenza [id number] Immunization 07/18/25 Z23 - Encounter for immunization Referrals Gastroenterology Referral A04.72 - Enterocolitis due to Clostridium difficile, not specified as recurrent
[2025-07-18 14:30] VITALS: BP 120/58; PULSE 90; TEMP 36.7; O2SAT 97
== END 2025-07-18 14:53 | disposition home or self-care (01) ==
LOC: HO.HMCFMS 14:23
PROVIDERS: PCP Student in an Organized Health Care Education/Training Program; Visit Provider Student in an Organized Health Care Education/Training Program
DX: A04.72 Enterocolitis due to Clostridium difficile, not specified as recurrent (principal); R19.7 Diarrhea, unspecified; R41.89 Other symptoms and signs involving cognitive functions and awareness; F90.9 Attention-deficit hyperactivity disorder, unspecified type

== ENCOUNTER → 2025-07-18 14:23 | Outpatient (BNVA) | payer OTHER, SELFPAY | PROVIDERS: PCP Student in an Organized Health Care Education/Training Program; Visit Provider Student in an Organized Health Care Education/Training Program | DX: A04.72 Enterocolitis due to Clostridium difficile, not specified as recurrent (principal); R41.89 Other symptoms and signs involving cognitive functions and awareness; F90.9 Attention-deficit hyperactivity disorder, unspecified type; Z13.31 Encounter for screening for depression; Z13.39 Encounter for screening examination for other mental health and behavioral disorders | CPT/HCPCS: 90471; 96127; 99212 ==